=== PATIENT | male | born 1965 | race Caucasian/White ===

== ENCOUNTER 2016-06-11 05:22 | Emergency (ER) | payer BC ==
[2016-06-11] MEDS ORDERED: ONDANSETRON HCL 8 MG TABLET PO ONE (05:48)
[2016-06-11] MEDS ORDERED: ONDANSETRON 4 MG TAB.RAPDIS ONE (05:52)
[2016-06-11] MEDS ORDERED: ONDANSETRON 4 MG TAB.RAPDIS PO ONE (05:55)
--- NOTE | 2016-06-11 06:07 | ERNOTE ---
Medical Problem HPI - General Chief Complaint: Nausea/Vomiting Time Seen by Provider: 06/11/16 05:34 Source: patient Exam Limitations: no limitations - Immun/Allergies/Home Medications Immunizations: IMMUNIZATION HX Immunizations Up to Date Yes History of Influenza Vaccine No Hx Pneumococcal Vaccination No Allergies/Adverse Reactions: Allergies acetaminophen [From Vicodin] Adverse Reaction (Verified 05/18/13 12:04) Other blisters bumps bupropion HCl [From Wellbutrin] Adverse Reaction (Verified 05/18/13 12:04) Other unknown adverse reaction cetirizine HCl [From Zyrtec] Adverse Reaction (Verified 05/18/13 12:04) ineffective clonazepam Adverse Reaction (Verified 05/18/13 11:59) Other crawling skin sensation divalproex sodium [From Depakote] Adverse Reaction (Verified 05/18/13 12:04) Other felt like on speed duloxetine HCl [From Cymbalta] Adverse Reaction (Verified 05/18/13 12:04) Other abdominal pain escitalopram oxalate [From Lexapro] Adverse Reaction (Verified 05/18/13 12:04) Other haunting thoughts fluoxetine HCl [From Prozac] Adverse Reaction (Verified 05/18/13 12:04) Other ineffective fluvoxamine maleate [From Luvox] Adverse Reaction (Verified 05/18/13 12:04) Other anger hydrocodone bitartrate [From Vicodin] Adverse Reaction (Verified 05/18/13 12:04) Other blisters bumps lithium [[place]] Adverse Reaction (Verified 05/18/13 12:04) Other urinary frequency mometasone furoate [From Asmanex [place]] Adverse Reaction (Verified 11:59) Nausea paroxetine HCl [From Paxil] Adverse Reaction (Verified 05/18/13 12:04) Other ineffective quetiapine fumarate [From Seroquel] Adverse Reaction (Verified 05/18/13 12:04) Other aggitation risperidone [From Risperdal] Adverse Reaction (Verified 05/18/13 12:04) Other excessive sleepiness sertraline HCl [From Zoloft] Adverse Reaction (Verified 05/18/13 12:04) Other ineffective venlafaxine HCl [From Effexor] Adverse Reaction (Verified 05/18/13 12:04) Other unknown Home Medications: HOME MEDICATIONS Mirtazapine [Remeron] 45 mg PO DAILY 05/18/13 [Last Taken Unknown] Omeprazole [Prilosec] 40 mg PO DAILY 05/18/13 [Last Taken Unknown] Lorazepam [Ativan] 2.5 mg PO DAILY 06/24/15 [Last Taken Unknown] Ondansetron HCl [Zofran] 1 - 2 mg PO Q8H PRN #10 tab 06/11/16 [Last Taken Unknown] - History of Present History Narrative: Pt has had nausea since March. Has consistantly worsened and he called his PCP but could not get in until Thursday. This morning he vomited and has a "squishy" feeling in his epigastrium. Timing: getting worse Severity: moderate Review of Systems - Review of Systems Constitutional: Absent: fever, chills EYE: Present: no symptoms reported ENT: Present: no symptoms reported Respiratory: Present: no symptoms reported Cardiology: Present: no symptoms reported Gastrointestinal/Abdominal: Present: See HPI, nausea, vomiting, eating less Genitourinary: Present: no symptoms reported Musculoskeletal: Present: no symptoms reported Skin: Present: no symptoms reported Neurological: Present: no symptoms reported Endocrine: Present: no symptoms reported Hematologic/Lymphatic: Present: no symptoms reported Psych: Present: no symptoms reported - Patient's Past Medical History Patient History - Medical: Other Patient History - Cardiac/Respiratory: No pertinent hx Patient History - Cancer: No Hx of Cancer Patient History - Surgical Procedures: Cholecystectomy Patient History - Other: None - Social History Living Situations: parents Psych History: Hx of Anxiety Smoking Status: Current every day smoker Alcohol Use: none Drug Use: none - Immunizations Immunizations Up to Date: Yes Hx Pneumococcal Vaccination: No History of Influenza Vaccine: No Physical Exam - Physical Exam General Appearance: Present: wd/wn, alert, no apparent distress Eye Exam: Normal inspection: bilateral Respiratory: Present: no respiratory distress, lungs clear Cardiovascular/Chest: Present: regular rate, rhythm, no murmur Gastrointestinal/Abdominal: Present: normal bowel sounds, nondistended, soft, other - attempted to feel the "squishy" feeling the patient was describing. He would try to make it happen and could not get it to happen while I was palpating Back Exam: Present: normal inspection Neurological Exam: Present: alert, oriented, normal mood/affect, no motor/ sensory deficits Skin Exam: Present: normal color, warm/dry ED Progress - Results and Orders Patient's Lab Results:: I have reviewed the patient's lab results. Results and Orders: Laboratory Tests 06/11/16 06/11/16 06:58 06:58 WBC 4.7 Hgb 16.2 Hct 47.6 Plt Count 196 Sodium 143 H Potassium 4.9 H D Chloride 107 H Carbon Dioxide 31.8 Anion Gap 9.1 BUN 10 Creatinine 1.12 BUN/Creatinine Ratio 8.9 L Random Glucose 106 Calcium 8.8 Total Bilirubin 0.3 AST 0 ALT 9 L Alkaline Phosphatase 99 Total Protein 7.0 Albumin 3.7 Amylase 50 Lipase 81 - Vital Signs Patient's Vital Signs:: I have reviewed the patient's vital signs. Vital Signs: Vital Signs 06/11/16 05:22 Temperature 35.9 C L Pulse Rate 79 Respiratory 16 Rate Blood Pressure 155/113 O2 Sat by Pulse 98 Oximetry - X-Ray X-Ray #1 X-Ray: abdomen Interpretation: Interp. by me X-ray Comments: Mild scattered stool without evidence for obstruction - Progress/Reassessment Chief Complaint: Nausea/Vomiting Progress:: Improved Departure - Departure Clinical Impression: Nausea Disposition: Home Follow Up Needed Condition: Good Instructions: Nausea, Adult Additional Instructions: See Dr. Garza as scheduled. Take zofran as needed for nausea Referrals: Adolfo Soto MD [Primary Care Provider] - Prescriptions: Ondansetron HCl [Zofran] 1 - 2 mg PO Q8H PRN #10 tab PRN Reason: Nausea
[2016-06-11 07:05] LABS: Hematocrit 47.6 % (42.0-52.0); Hemoglobin 16.2 gm/dL (13.5-18.0); Mean Cell Volume 90.7 fl (78-100); Mean Corpuscular Hemoglobin 30.9 pg (27-31); Mean Platelet Volume 9.6 fl (6.0-9.5); Neutrophil # 2.8 K/mm3 (1.3-6.0); Neutrophil % 60.1 % (42-75.0); Platelet Count 196 K/mm3 (150-450); Red Blood Count 5.25 M/mm3 (4.7-6.0); White Blood Count 4.7 K/mm3 (4.0-10.5)
[2016-06-11 07:10] VITALS: BP 135/97
[2016-06-11 07:19] LABS: Albumin * 3.7 gm/dl (3.4-5.0); Anion Gap 9.1 mmol/L (6.8-13.8); BUN/Creatinine Ratio 8.9 (9.0-21.6); Bilirubin, Total 0.3 mg/dL (0.0-1.1); Ca. Corrected For Albumin 8.7 mg/dL (8.4-10.2); Calcium * 8.8 mg/dL (7.9-10.9); Carbon Dioxide 31.8 mmol/L (24-32.6); Potassium 4.9 mmol/L (3.4-4.6)
== END 2016-06-11 07:35 | disposition home or self-care (01) ==
LOC: ER 05:22
DX: R11.0 Nausea (principal); Z72.0 Tobacco use